=== PATIENT | female | born 1995 | race Caucasian/White ===

== ENCOUNTER 2017-06-11 23:17 | Emergency (ER) | payer BC ==
[~2017-06-11] VITALS: Ht 167.6 cm; Wt 107.5 kg
[2017-06-12] MEDS ORDERED: DIPHENHYDRAMINE 50 MG/ML, 1ML IVPush ONE (00:30)
[2017-06-12] MEDS ORDERED: SODIUM CHLORIDE 0.9% 1,000ML IVBOLUS ONE (00:30)
[2017-06-12] MEDS ORDERED: SODIUM CHLORIDE FLUSH 10ML SYR IVF ONE (00:30)
[2017-06-12] MEDS ORDERED: KETOROLAC 30 MG/1 ML IVPush ONE (00:30)
[2017-06-12] MEDS ORDERED: PROCHLORPERAZINE 5 MG/ML, 2ML IVPush ONE (00:30)
[2017-06-12] MEDS ORDERED: DIPHENHYDRAMINE 50 MG/ML, 1ML ONE (00:33)
[2017-06-12] MEDS ORDERED: KETOROLAC 30 MG/1 ML ONE (00:33)
[2017-06-12] MEDS ORDERED: PROCHLORPERAZINE 5 MG/ML, 2ML ONE (00:33)
[2017-06-12 00:43] LABS: HEMATOCRIT 44.3 % (34.6-47.8); HEMOGLOBIN 14.9 g/dL (11.7-16.4); WHITE BLOOD COUNT 10.8 x10^3/uL (3.4-10)
[2017-06-12] MEDS ORDERED: ESCI10TA10 PO (00:53)
[2017-06-12 00:55] LABS: BLOOD UREA NITROGEN 12 mg/dL (7-18)
[2017-06-12 02:14] VITALS: BP 133/99
== END 2017-06-12 02:17 | disposition home or self-care (01) ==
LOC: ED 23:59
DX: R51 Headache (principal)
CPT/HCPCS: 36415; 70450; 80048; 82040; 84703; 85025; 96361; 96374; 96375; 99285; J0780; J1200; J1885; J7030

== ENCOUNTER 2020-07-09 10:30 | Emergency (ER) | payer BC ==
[~2020-07-09] VITALS: Ht 165.1 cm; Wt 94.8 kg
[~2020-07-09 10:30] MED LIST: ESCI10TA10 PO; LAMO25TB7 PO
[2020-07-09] MEDS ORDERED: SODIUM CHLORIDE 0.9% 1,000ML IVBOLUS ONE (11:00)
[2020-07-09] MEDS ORDERED: FAMOTIDINE 20 MG/2 ML IVPush ONE (11:00)
[2020-07-09] MEDS ORDERED: SODIUM CHLORIDE FLUSH 10ML SYR IVF ONE (11:00)
--- NOTE | 2020-07-09 11:08 | NUR ---
BS US IN PROGRESS
[2020-07-09 11:10] LABS: BASOPHILS % (AUTO) 1 % (0-1); EOSINOPHILS % (AUTO) 0 % (1-7); LYMPHOCYTES % (AUTO) 20 % (22-44); MEAN CORPUSCULAR HEMOGLOBIN 30.6 pg (27.0-34.8); MEAN CORPUSCULAR HGB CONC 33.2 g/dL (32.4-35.8); MEAN PLATELET VOLUME 8.6 fL (7.4-10.4); MONOCYTES % (AUTO) 4 % (2-9); NEUTROPHILS % (AUTO) 76 % (42-75); PLATELET COUNT 247 x10^3/uL (130-400); RED BLOOD COUNT 4.66 x10^6/uL (3.82-5.3); RED CELL DISTRIBUTION WIDTH 12.6 % (9.6-15.2)
[2020-07-09 11:17] LABS: MD NO
[2020-07-09 11:22] LABS: ALANINE AMINOTRANSFERASE 15 U/L (12-78); ALBUMIN 3.9 g/dL (3.4-5.0); ANION GAP 8 mmol/L (5-15); CALCIUM 9.3 mg/dL (8.5-10.1); CHLORIDE 109 mmol/L (98-107)
[2020-07-09 11:27] LABS: ALKALINE PHOSPHATASE 89 U/L (45-117); BILIRUBIN,TOTAL 0.8 mg/dL (0.2-1.0); CREATININE 0.84 mg/dL (0.55-1.02); TOTAL PROTEIN 7.3 g/dL (6.4-8.2)
[2020-07-09] MEDS ORDERED: FAMOTIDINE 20 MG/2 ML ONE (11:37)
[2020-07-09 11:48] VITALS: BP 124/74
== END 2020-07-09 12:51 | disposition home or self-care (01) ==
LOC: ED 11:34
DX: K29.01 Acute gastritis with bleeding (principal); R11.2 Nausea with vomiting, unspecified; F17.200 Nicotine dependence, unspecified, uncomplicated
CPT/HCPCS: 36415; 76700; 80053; 83690; 84703; 85025; 96361; 96374; 99284; J7030